=== PATIENT | female | born 1950 | race Caucasian/White ===

== ENCOUNTER → 2017-06-28 | Outpatient (CLI) | payer OTHER ==
[2017-07-07 06:44] LABS: URINE ETHANOL 1 Negative
[2017-07-07 06:45] LABS: SUMMARY SEE SEPARATE REPORT
== END ==
LOC: M SMT 13:24
PROVIDERS: ATTEND Physician Assistant
DX: Z02.83 Encounter for blood-alcohol and blood-drug test (principal)

== ENCOUNTER 2021-04-24 16:03 | Emergency (ER) | payer MEDICARE, OTHER ==
[~2021-04-24] VITALS: Ht 160 cm; Wt 63.2 kg
[2021-04-24] MEDS ORDERED: VENTAER (16:44)
[2021-04-24] MEDS ORDERED: METO1TAB32 (16:44)
[2021-04-24] MEDS ORDERED: PANTOPRAZOLE 40MG VIAL (C9113 PER 1) IV ONE (17:45)
[2021-04-24] MEDS ORDERED: ISOVUE-370 76% 100ML VIAL As Ordered ONE (18:54)
[2021-04-24 19:00] LABS: HEMATOCRIT 23.3 % (36.0-47.0); HEMOGLOBIN 7.7 g/dl (12.0-15.5); MEAN CORPUSCULAR HEMOGLOBIN 32.4 pg (27.0-33.0); MEAN CORPUSCULAR VOLUME 97.9 fl (80.0-96.0); PLATELET COUNT, AUTOMATED 117 10^3/uL (150-450); RED BLOOD COUNT 2.38 10^6/uL (4.00-5.40); WHITE BLOOD COUNT 6.4 10^3/uL (4.0-10.0)
[2021-04-24 19:12] LABS: INR 1.74; PROTHROMBIN TIME 20.7 SECONDS (12.7-14.5)
[2021-04-24 19:27] LABS: ALBUMIN 2.1 GM/DL (3.2-5.2); ALT/SGPT 29 U/L (12-78); AMYLASE 79 U/L (25-115); BILIRUBIN,DIRECT 2.9 MG/DL (0.0-0.2); BILIRUBIN,TOTAL 6.1 MG/DL (0.2-1.0); CK-MB VALUE MASS 2.9 NG/ML (<3.6); CPK CREATINE PHOSPHOKINASE 69 U/L (26-192); LIPASE 254 U/L (73-393); TOTAL PROTEIN 5.5 GM/DL (6.4-8.2); TROPONIN I < 0.02 NG/ML (< 0.10)
--- NOTE | 2021-04-24 19:36 | ECGEPIP ---
[facility] - ED Test Date: 2021-04-24 Pat Name: DUNG PUGH Department: Room: - Gender: Female Ict Teacher: EVELYN : 1950 Requested By: OTONIEL LONGO Order Number: [id number] Reading MD: Kev Gould Measurements Intervals [place] Rate: 91 P: 59 WA: 134 QRS: 20 QRSD: 70 T: 52 QT: 370 QTc: 455 Interpretive Statements Normal sinus rhythm Delayed R wave progression Nonspecific ST T wave changes No prior ECG for comparison Electronically Signed on 04-24-2021 19:35:37 EDT by Kev Gould
[2021-04-24 19:50] LABS: ANISOCYTOSIS 2+; ATYPICAL LYMPH 5 % (0-5); BASOPHILS 1 % (0-1); EOSINOPHILS 6 % (0-3); LYMPHOCYTES 30 % (16-44); MONOCYTES 10 % (0-5); NEUTROPHILS 48 % (28-66); PLATELET ESTIMATE DECREASED (NORMAL)
--- NOTE | 2021-04-24 19:58 | REPVR ---
PROCEDURE INFORMATION: Exam: CT Abdomen And Pelvis With Contrast Exam date and time: 04/24/2021 7:09 PM Age: 71 years old Clinical indication: Abdominal pain; Localized; Left upper quadrant (luq); Additional info: Luq pain TECHNIQUE: Imaging protocol: Computed tomography of the abdomen and pelvis with contrast. Radiation optimization: All CT scans at this facility use at least one of these dose optimization techniques: automated exposure control; mA and/or kV adjustment per patient size (includes targeted exams where dose is matched to clinical indication); or iterative reconstruction. Contrast material: ISOVUE 370; Contrast volume: 100 ml; Contrast route: INTRAVENOUS (IV); COMPARISON: No relevant prior studies available. FINDINGS: Lungs: Basilar atelectasis left lower and lingular lobes. Pleural spaces: Small to moderate left pleural effusion. Liver: The liver has a grossly nodular contour and there is relative hypertrophy of the caudate lobe and marked overall reduction in hepatic volume, findings consistent with end-stage cirrhosis. Gallbladder and bile ducts: The gallbladder is incompletely distended. This is most likely related to incomplete fasting. Clinical correlation to exclude gallbladder pathology suggested. Pancreas: Normal. No ductal dilation. Spleen: Normal. No splenomegaly. Adrenal glands: Normal. No mass. Kidneys and ureters: Normal. No hydronephrosis. Stomach and bowel: Unremarkable. No obstruction. No mucosal thickening. Appendix: No evidence of appendicitis. Intraperitoneal space: There is a moderate amount of free intraperitoneal fluid present. Vasculature: The aortoiliac vessels demonstrate moderate atherosclerotic calcification. Lymph nodes: Unremarkable. No enlarged lymph nodes. Urinary bladder: Unremarkable as visualized. Reproductive: Unremarkable as visualized. Bones/joints: Age indeterminate compression deformity of L2 likely chronic. Mild central spinal stenosis L4-L5. Status post right hip hemiarthroplasty. Soft tissues: There is soft tissue edema demonstrated in the abdominal wall, flanks and buttock regions consistent with anasarca. Recanalized paraumbilical veins. IMPRESSION: 1. Anasarca. 2. The liver has a grossly nodular contour and there is relative hypertrophy of the caudate lobe and marked overall reduction in hepatic volume, findings consistent with end-stage cirrhosis. 3. The gallbladder is incompletely distended. This is most likely related to incomplete fasting. Clinical correlation to exclude gallbladder pathology suggested. 4. There is a moderate amount of free intraperitoneal fluid present. Electronically signed by: Herminio Garzon On 04/24/2021 19:58:07 PM
[2021-04-24 20:18] VITALS: BP 148/82
== END 2021-04-24 20:52 | disposition home or self-care (01) ==
LOC: M ED 16:03
DX: K72.90 Hepatic failure, unspecified without coma (principal); D64.9 Anemia, unspecified; Z53.9 Procedure and treatment not carried out, unspecified reason; F10.10 Alcohol abuse, uncomplicated; F17.200 Nicotine dependence, unspecified, uncomplicated; F12.10 Cannabis abuse, uncomplicated; I10 Essential (primary) hypertension; Z88.8 Allergy status to other drugs, medicaments and biological substances; Z88.0 Allergy status to penicillin
CPT/HCPCS: 74177; 80047; 80076; 82150; 82550; 82553; 83605; 83690; 84484; 85025; 85610; 85730; 86850; 86900; 86901; 86920; 93005; 93041; 96374; 99284; C9113; Q9967